=== PATIENT | male | born 1985 | race Caucasian/White ===

== ENCOUNTER 2017-11-19 14:53 | Emergency (ER) | payer BC ==
[2017-11-19 15:22] LABS: #Basophils 0.2 thou/uL (0.0-0.2); #Eosinphils 0.5 thou/uL (0.0-0.7); #Lymphocytes 4.9 thou/uL (1.20-3.40); #Monocytes 1.1 thou/uL (0.11-0.59); #Neutrophils 7.4 thou/uL (1.40-6.50); %Basophils 1.4 % (0.0-1.0); %Eosinophils 3.8 % (0.0-10.0); %Lymphocytes 34.9 % (21.0-51.0); %Monocytes 7.4 % (0.0-10.0); %Neutrophils 52.5 % (42.0-75.0); Hemoglobin 15.7 g/dL (14.0-18.0); Mean Corpuscular HGB CONC 34.6 g/dL (32.0-36.0); Mean Corpuscular Volume 83.8 fl (80.0-94.0); Mean Platelet Volume 9.3 fL (7.4-10.4); Platelet Count 324 thou/uL (130-400); Red Blood Cell (RBC) Count 5.43 mill/uL (4.70-6.10); White Blood Cell (WBC) Count 14.1 thou/uL (4.8-10.8)
[2017-11-19 15:28] LABS: AST (SGOT) 35 U/L (5-34); Anion Gap 15 mmol/L (10-20); Calc. Creatinine Clearance 0 mL/min (70-130); Calcium 9.4 mg/dL (7.8-10.44); Carbon Dioxide 23 mmol/L (22-29); Chloride 109 mmol/L (98-107); Estimated GFR-MDRD 70; Glucose 163 mg/dL (70-105); Potassium 3.7 mmol/L (3.5-5.1); Sodium 143 mmol/L (136-145)
[2017-11-19 15:33] LABS: CKMB 1.6 ng/mL (0-6.6); Troponin I Less than 0.010 ng/mL (< 0.028)
[2017-11-19] MEDS ORDERED: Piperacillin/Tazobactam 3.375 GM VIAL ONE (15:44)
[2017-11-19] MEDS ORDERED: Pantoprazole 40 MG VIAL ONE (15:44)
--- NOTE | 2017-11-19 21:01 | RAD ---
ACUTE ABDOMEN SERIES 11/19/17 No prior films are available for comparison. The films of the abdomen show the lower abdomen adequate ly, but the upper abdomen is really not seen well, probably due to patient's size. There is no gross dilation of bowel, but this study is incomplete. No pathologic calcifications are seen in the lower a bdomen. The upper abdomen is not visualized. The chest film in the series is most likely mismarked. T he heart seems normal for body habitus. There is no congestive change, pleural effusion, or focal pul monary infiltrate. IMPRESSION: Very limited study showing no gross findings. Upper abdomen not evaluated. POS: HOME
== END 2017-11-19 16:32 | disposition short-term general hospital (02) ==
LOC: BURERS 14:53
DX: K92.2 Gastrointestinal hemorrhage, unspecified (principal)
CPT/HCPCS: 74022; 80051; 82150; 82310; 82553; 82565; 82947; 84155; 84450; 84484; 85025; 86900; 86901; 96365; 96375; C9113; J2543